=== PATIENT | female | born 1980 | race Caucasian/White ===

== ENCOUNTER → 2018-03-24 | Outpatient (CLI) | payer BC, OTHER ==
--- NOTE | 2018-03-25 11:57 | Diagnostic Imaging Report ---
EXAM: OB ULTRASOUND COMPLETE DATE: March 24, 2018. COMPARISON: None. INDICATION: 37-year-old female, supervision of otherwise normal . FINDINGS: Multiple grayscale sonographic images were obtained of the gravid uterus. Overview: Within the uterus there is a single living gestation in breech position. There is positive movement and heart motion. heart rate was identified at 135 beats per minute. The amnionic fluid volume is subjectively normal. The placenta is posterior and without previa. The cervical length is 4.0 cm. growth parameters are summarized in detail on the accompanying separate chart. The approximate mean gestational age by today's ultrasound measurements is 21 weeks 0 days +/- 1 week variability. Estimated weight based on today's measurements is 411 g. anatomic survey: There is no ventriculomegaly (the lateral ventricle measures <7.5 mm) the cerebellum, cavum septum pellucidum, falx, and cisterna magna are identified. There are very limited images of the spine. There is visualization of the stomach, kidneys and urinary bladder. There is no diagnostic four-chamber view of the heart. There is a three-vessel cord with an unremarkable insertion into the abdominal wall. 4 extremities are seen. The upper lip is not well seen. IMPRESSION: 1. Single living intrauterine with approximate mean gestational age of 21 weeks 0 days +/- 1 week. 2. Significantly limited survey without demonstrated abnormality. Biometrical measurements are as follows: Biparietal 4.78 cm, age 20 weeks 4 days. Head circumference 17.96 cm, age 20 weeks 3 days. Abdominal circumference 16.69 cm, age 21 weeks 5 days. Femur length 3.49 cm, age 21 weeks 1 days. Sonographic estimate age: 21 weeks 0 days. Sonographic estimated date of delivery: 08/04/18. Estimated Weight: 411 gm (+/- 60 gm). LMP percentile: 98%. heart rate: 135 beats per minute. number: 1 of 1. Dictated by: Dictated on workstation # [id number]
== END ==
LOC: RAD 15:28
PROVIDERS: ATTEND Obstetrics & Gynecology
DX: O09.522 Supervision of elderly multigravida, second trimester (principal); Z3A.21 21 weeks gestation of pregnancy
CPT/HCPCS: 76805

== ENCOUNTER → 2018-04-24 | Outpatient (CLI) | payer BC ==
--- NOTE | 2018-04-24 17:43 | Diagnostic Imaging Report ---
INDICATION: patient, incomplete survey on previous study. TECHNIQUE: Multiple real-time grayscale images were obtained over the gravid uterus. COMPARISON: 03/24/2018. FINDINGS: Single live intrauterine fetus is seen with a heart rate of 163 beats per minute. The placenta is posterior and grade 1 with no evidence of previa. Fetus is in transverse presentation. Since the patient had a recent full survey, only limited views were obtained of the areas which were not seen on the prior study. Normal appearing four-heart view and spine views were identified. Biometrical measurements are as follows: IMPRESSION: Limited survey was performed to evaluate the areas which were not seen on the previous study. Normal-appearing four-chamber heart view and spine were seen. heart rate is 163 beats per minute. There is no detectable abnormality on this limited study. Dictated on workstation # [id number]
== END ==
LOC: RAD 15:08
PROVIDERS: ATTEND Obstetrics & Gynecology
DX: Z36.89 Encounter for other specified antenatal screening (principal); Z3A.00 Weeks of gestation of pregnancy not specified
CPT/HCPCS: 76816

== ENCOUNTER 2018-07-07 10:35 | Outpatient (CLI) | payer BC ==
[~2018-07-07] VITALS: Ht 165.1 cm; Wt 99.3 kg
--- NOTE | 2018-07-07 10:30 | NUR ---
CONCEPCIÓN BERRY presented to unit via AMBULATORY from HOME, with c/o VAGINAL BLEEDING AT 35 WEEKS. CONCEPCIÓN BERRY weighed, gowned, voided, and to bed. EFHM and TOCO applied, VS taken. CONCEPCIÓN BERRY oriented to bed controls, call light, TV, heat, and A/C controls.
[2018-07-07 10:36] VITALS: BP 129/83
[2018-07-07 10:52] LABS: BILIRUBIN,URINE NEGATIVE (NEGATIVE); CLARITY,URINE CLEAR; COLOR,URINE YELLOW; GLUCOSE, URINE (UA) NEGATIVE (NEGATIVE); KETONES,URINE NEGATIVE (NEGATIVE); LEUKOCYTE ESTERASE ,URINE 2+ (NEGATIVE); NITRITE,URINE NEGATIVE (NEGATIVE); PH,URINE 7 (5-9); PROTEIN,URINE 1+ (NEGATIVE); UROBILINOGEN,URINE NORMAL (NORMAL)
[2018-07-07 11:01] LABS: BACTERIA,URINE FEW /HPF; RBC,URINE RARE /HPF
[2018-07-07] MEDS ORDERED: OMEG-82 PO (11:08)
[2018-07-07] MEDS ORDERED: PREN-37 PO (11:08)
--- NOTE | 2018-07-07 11:16 | NUR ---
DR. EGAN CALLED AND NOTIFIED OF PT'S ARRIVAL, C/O AND STATUS. DR TO COME TO UNIT AND SEE PT, REQUESTING TO DO A SPECULUM EXAM.
--- NOTE | 2018-07-07 11:59 | NUR ---
REFER TO LABOR FLOW SHEET.
--- NOTE | 2018-07-07 12:15 | NUR ---
DISCHARGE PAPERS PROVIDED AND REVIEWED WITH PT, PT VERBALIZES UNDERSTANDING AND DENIES ANY QUESTIONS AT THIS TIME. PAPER SIGNED.
--- NOTE | 2018-07-07 12:18 | NUR ---
PT DISCHARGED FROM [facility] TO [facility] VIA AMBULATORY IN STABLE CONDITION.
--- NOTE | 2018-07-08 13:31 | Physician Query-Final Dx ---
JESSI HOLCOMB 07/08/18 1331: Clinic Account Progress/Dx Physician Query: Please give diagnosis Date of Service Jul 07, 2018 at 10:35 YAMILET EGAN DO 07/30/18 1347: Clinic Account Progress/Dx DIAGNOSIS: Diagnosis 35 wee gestation third trimester bleeding JESSI HOLCOMB Jul 08, 2018 13:31 YAMILET EGAN DO Jul 30, 2018 13:47
== END 2018-07-07 12:18 | disposition home or self-care (01) ==
LOC: WSo 10:35 → LDRP 10:35 → WSo 12:18
PROVIDERS: ATTEND Obstetrics & Gynecology
DX: O46.93 Antepartum hemorrhage, unspecified, third trimester (principal); Z3A.35 35 weeks gestation of pregnancy
CPT/HCPCS: 81000; 87088; 99213

== ENCOUNTER → 2018-07-21 | Outpatient (CLI) | payer BC ==
[~2018-07-21] MED LIST: OMEG-82 PO; PREN-37 PO
--- NOTE | 2018-07-21 11:20 | Diagnostic Imaging Report ---
INDICATION: Size and dates. TECHNIQUE: Multiple real-time grayscale images were obtained over the gravid uterus. COMPARISON: 04/24/2018. FINDINGS: There is a single living intrauterine in cephalic presentation. Amniotic fluid index is 13.03. Heart rates is 152 beats per minute and regular. Estimated weight is 3209 g. The biometry correlates with a gestational age of 37 weeks 1 day. The biophysical profile score is 8 out of 8. IMPRESSION: Single living intrauterine with sonographically estimated gestational age of 37 weeks 1 day and estimated date of confinement 08/10/2018. Normal biophysical profile score of 8 out of 8. Biometrical measurements are as follows: Biparietal 9.08 cm, age 36 weeks 6 days. Head circumference 32.36 cm, age 36 weeks 5 days. Abdominal circumference 34.34 cm, age 38 weeks 2 days. Femur length 7.08 cm, age 36 weeks 3 days. Sonographic estimate age: 37 weeks 1 days. Sonographic estimated date of delivery: 08/10/2018. Estimated Weight: 3209 gm (+/- 469 gm). LMP percentile: 71%. heart rate: 152 beats per minute. number: 1 of 1. Dictated by: Dictated on workstation # [id number]
== END ==
LOC: RAD 09:48
PROVIDERS: ATTEND Obstetrics & Gynecology
DX: O09.523 Supervision of elderly multigravida, third trimester (principal); Z3A.36 36 weeks gestation of pregnancy
CPT/HCPCS: 76805; 76819

== ENCOUNTER 2018-08-13 09:05 | Inpatient (IN) | payer BC ==
[2018-08-13] VITALS (63 sets, daily range): BP systolic 94–146; BP diastolic 51–90
[~2018-08-13] VITALS: Ht 165.1 cm; Wt 101.3 kg
--- NOTE | 2018-08-13 08:35 | NUR ---
CONCEPCIÓN BERRY presented to unit via AMBULAITON from HOME, accompanied by , with c/o POSSIBLE LABOR. CONCEPCIÓN BERRY weighed, gowned, voided, and to bed. EFHM and TOCO applied, VS taken. CONCEPCIÓN BERRY oriented to bed controls, call light, TV, heat, and A/C controls.
--- NOTE | 2018-08-13 09:02 | NUR ---
DR EGAN NOTIFIED OF PATIENT C/O, STATUS, AND RECENT CERVICAL EXAM. NEW ORDERS RECEIVED.
[2018-08-13] MEDS ORDERED: D5 LR IV SOLUTION 1,000 ML IV ONE (09:29)
[2018-08-13] MEDS ORDERED: LACTATED RINGERS 1,000 ML IV ONE (09:29)
[2018-08-13] MEDS ORDERED: MINERAL OIL CONCENTRATE 99.9% 15 ML UDC TOP PRN (09:30)
[2018-08-13 09:39] LABS: BASOPHILS % (AUTO) 0 % (0-10); EOSINOPHILS # (AUTO) 0.1 10^3/uL (0.0-0.3); EOSINOPHILS % (AUTO) 1 % (0-10); HEMATOCRIT 34 % (35-52); HEMOGLOBIN 11.4 G/DL (11.5-16.0); LYMPHOCYTES # (AUTO) 1.6 X 10^3 (1.0-4.0); LYMPHOCYTES % (AUTO) 13 % (12-44); MEAN CORPUSCULAR HEMOGLOBIN 29 PG (25-34); MEAN CORPUSCULAR HGB CONC 33 G/DL (32-36); MEAN CORPUSCULAR VOLUME 88 FL (80-99); MEAN PLATELET VOLUME 9.7 FL (7.4-10.4); MONOCYTES # (AUTO) 0.6 X 10^3 (0.0-1.0); MONOCYTES % (AUTO) 5 % (0-12); NEUTROPHILS # (AUTO) 10.1 X 10^3 (1.8-7.8); NEUTROPHILS % (AUTO) 82 % (42-75); PLATELET COUNT 255 10^3/uL (130-400); RED CELL DISTRIBUTION WIDTH 14.7 % (10.0-14.5); WHITE BLOOD COUNT 12.4 10^3/uL (4.3-11.0)
[2018-08-13] MEDS: D5 LR IV SOLUTION 1,000 ML IV SCH ×2 (09:40→17:40)
[2018-08-13 09:46] LABS: BILIRUBIN,URINE NEGATIVE (NEGATIVE); CLARITY,URINE CLEAR; COLOR,URINE YELLOW; GLUCOSE, URINE (UA) NEGATIVE (NEGATIVE); KETONES,URINE NEGATIVE (NEGATIVE); LEUKOCYTE ESTERASE ,URINE NEGATIVE (NEGATIVE); NITRITE,URINE NEGATIVE (NEGATIVE); PH,URINE 7 (5-9); PROTEIN,URINE NEGATIVE (NEGATIVE); UROBILINOGEN,URINE NORMAL (NORMAL)
[2018-08-13 09:53] LABS: BACTERIA,URINE NEGATIVE /HPF; RBC,URINE RARE /HPF; WBC,URINE RARE /HPF
[2018-08-13] MEDS ORDERED: SUFENTA 0.6MCG/ML BUPIVA 0.125 100 ML ONE (09:53)
[2018-08-13] MEDS ORDERED: LACTATED RINGERS 1,000 ML IV SCH (10:16)
[2018-08-13] MEDS ORDERED: EPIDURAL (SUFENTA 0.6MCG/ML BUPIVA 0.125%) 100 ML BAG EPI SCH (10:30)
[2018-08-13] MEDS ORDERED: diphenhydrAMINE 50 MG/ML INJ (BENADRYL) IV PRN (10:30)
[2018-08-13] MEDS ORDERED: METOCLOPRAMIDE INJ 10 MG/2 ML (REGLAN) IV PRN (10:30)
[2018-08-13] MEDS ORDERED: ONDANSETRON 4 MG/2 ML (SDV) Z0FRAN IV PRN (10:30)
[2018-08-13] MEDS ORDERED: NALOXONE 0.4 MG/ML 1 ML (NARCAN) VIAL IV PRN ×2 (10:30)
--- NOTE | 2018-08-13 11:10 | NUR ---
NURSERY RN NOTIFIED OF MECONIUM WITH AROM
--- OUTSIDE RECORDS SUMMARY | 2018-08-13 11:18 | XMS REPORT ---
Author Author EDWINA BINGHAM Organization [facility] Address [address] [place] [address] Care Team Providers Care Forest Nursery Worker Name Role Phone EDWINA BINGHAM Unavailable PROBLEMS Unknown Problems ALLERGIES No Information ENCOUNTERS Encounter Location Date Diagnosis [place] [id number] [address] Mar, Exposure to blood-borne pathogen Z77.21 [place] [id number] [address] Mar, Exposure to blood-borne pathogen Z77.21 [place] [id number] [place] [address] Feb, Exposure to blood-borne pathogen Z77.21 [place] [address] [place] [address] May, Visit for TB skin test Z11.1 [place] [id number], [place] [address] May, Encounter for immunization Z23 and Visit for TB skin test Z11.1 IMMUNIZATIONS No Known Immunizations SOCIAL HISTORY Never Assessed REASON FOR VISIT Lab (walk-in) PLAN OF CARE Activity Details Pending Test HEPATITIS PROFILE Pending Test HIV ANTIGEN/ANTIBODY VITAL SIGNS MEDICATIONS Unknown Medications RESULTS No Results PROCEDURES Procedure Date Ordered Result Body Site HIV-1 AG W/HIV-1 & HIV-2 AB Mar 24, 2018 ACUTE HEPATITIS PANEL Mar 24, 2018 VENIPUNCT, ROUTINE* Mar 24, 2018 INSTRUCTIONS MEDICATIONS ADMINISTERED No Known Medications
--- OUTSIDE RECORDS SUMMARY | 2018-08-13 11:18 | XMS REPORT ---
Author Author KRIS GOMEZ Organization [facility] Address [address] [place] [address] Care Team Providers Care Human Resources Consultant Name Role Phone KRIS GOMEZ Unavailable PROBLEMS Unknown Problems ALLERGIES No Information ENCOUNTERS Encounter Location Date Diagnosis [facility] [address] [facility] [id number] [address] May, Visit for TB skin test Z11.1 [facility] [address] [facility] [id number] [address] May, Encounter for immunization Z23 and Visit for TB skin test Z11.1 IMMUNIZATIONS No Known Immunizations SOCIAL HISTORY Never Assessed REASON FOR VISIT TB skin test -- kathleen bloom PLAN OF CARE Activity Details Follow Up 48-72 hours. Reason: VITAL SIGNS MEDICATIONS Unknown Medications RESULTS No Results PROCEDURES Procedure Date Ordered Result Body Site TB INTRADERMAL 2017-05-30 Negative TB INTRADERMAL TEST May 30, 2017 TB INTRADERMAL TEST May 30, 2017 INSTRUCTIONS MEDICATIONS ADMINISTERED No Known Medications
--- OUTSIDE RECORDS SUMMARY | 2018-08-13 11:18 | XMS REPORT ---
Author Author EDWINA BINGHAM Organization [facility] Address [address] [place] [address] Care Team Providers Care E Business Project Manager Name Role Phone EDWINA BINGHAM Unavailable PROBLEMS Unknown Problems ALLERGIES No Information ENCOUNTERS Encounter Location Date Diagnosis [place] [address] [place] [address] Mar, Exposure to blood-borne pathogen Z77.21 [place] [address], [place] [address] Mar, Exposure to blood-borne pathogen Z77.21 [place] [address] [place] [address] Feb, Exposure to blood-borne pathogen Z77.21 [place] [address] [place] [address] May, Visit for TB skin test Z11.1 [place] [address], [place] [address] May, Encounter for immunization Z23 and Visit for TB skin test Z11.1 IMMUNIZATIONS No Known Immunizations SOCIAL HISTORY Never Assessed REASON FOR VISIT PLAN OF CARE VITAL SIGNS MEDICATIONS Unknown Medications RESULTS No Results PROCEDURES No Known procedures INSTRUCTIONS MEDICATIONS ADMINISTERED No Known Medications
--- OUTSIDE RECORDS SUMMARY | 2018-08-13 11:18 | XMS REPORT ---
Author Author GARRET DUKES Organization [facility] Address [address] [place] [address] Phone Unavailable Care Team Providers Care Apprise Counselor Name Role Phone GARRET DUEKS Unavailable Unavailable PROBLEMS Unknown Problems ALLERGIES No Information ENCOUNTERS Encounter Location Date Diagnosis [facility] [id number], [place] [address] Feb, Exposure to blood-borne pathogen Z77.21 [facility] [id number], [place] [address] May, Visit for TB skin test Z11.1 [facility] [id number], [place] [address] May, Encounter for immunization Z23 and Visit for TB skin test Z11.1 IMMUNIZATIONS No Known Immunizations SOCIAL HISTORY Never Assessed REASON FOR VISIT Lab (walk-in) PLAN OF CARE Activity Details Follow Up prn Reason: Pending Test HIV ANTIGEN/ANTIBODY Pending Test HEP B SURFACE ANTIBODY (QUANT) Pending Test HEP B SURFACE ANTIGEN Pending Test HEP C ANTIBODY W/ REFLEX HCV VITAL SIGNS MEDICATIONS Unknown Medications RESULTS No Results PROCEDURES Procedure Date Ordered Result Body Site HIV-1 AG W/HIV-1 & HIV-2 AB Feb 24, 2018 HEPATITIS C AB TEST Feb 24, 2018 IMMUNOASSAY,INFECTIOUS AGENT Feb 24, 2018 VENIPUNCT, ROUTINE* Feb 24, 2018 HEPATITIS B SURFACE AG, EIA Feb 24, 2018 INSTRUCTIONS MEDICATIONS ADMINISTERED No Known Medications
--- NOTE | 2018-08-13 12:41 | History & Physical-OB ---
OB - Chief Complaint & HPI Date/Time Date of Admission: Date of Admission: Aug 13, 2018 at 09:48 Date seen by a Provider: Aug 13, 2018 Time Seen by a Provider: 10:30 Chief Complaint/History OB-Reason for Admission/Chief: Previous section. Desires TOLAC Hx : 2 Hx Para: 1 Expected Date of Delivery: Aug 12, 2018 Gestational Age in Weeks: 40 Gestational Age in Days: 1 Allergies and Home Medications Allergies Coded Allergies: No Known Drug Allergies (Unverified , 04/16/10) Home Medications [place]-3S/Dha/Epa/Fish Oil/D3 1 Each Capsule, 1 EACH PO DAILY, (Reported) Vit/Iron Fumarate/FA 1 Each Tablet, 1 EACH PO DAILY, (Reported) Patient Home Medication List Home Medication List Reviewed: Yes OB - History Hx of Present Ultrasounds: Normal mid trimester US Obstetrical Complications: None Medical Complications: None Information Induced Hypertension: No Maternal Gestational Diabetes: No Hemorrhage: No Obstetrical History Hx : 2 Hx Para: 1 Delivery History Hx Distress: Yes Hx Section: Yes Hx Vaginal Delivery Post C-Sec: No Adverse Rxn to Tranfusion: No Patient Past Medical History NC Social History/Family History Alcohol Use: Denies Use Recreational Drug Use: No Immunizations Hepatitis A: Yes Hepatitis B: Yes Date of Influenza Vaccine: Feb 02, 2018 OB - Admission Exam Physical Exam Vitals: Vital Signs 08/13/18 08/13/18 09:40 11:01 Temp 97.5 Pulse 62 Resp 18 B/P (MAP) 122/77 (92) Pulse Ox 100 O2 Delivery Room Air Heart: Rhythm Normal Lungs: Clear Abdomen: Gravid Cervical Dilatation: 5cm Effacement: 100% Station: Ballotable Membranes: Intact Heart Rate: 140's Accelerations: Accelerations Present Decelerations: No Decelerations Short Term Variability: Present Alf Variability: Average (6-25) Contractions on Admission: 6-10 Minutes Apart Labs Laboratory Tests Test 08/13/18 09:00 08/13/18 09:20 Range/Units Urine Color YELLOW Urine Clarity CLEAR Urine pH 7 5-9 Urine Specific [place] 1.005 L 1.016-1.022 Urine Protein NEGATIVE NEGATIVE Urine Glucose (UA) NEGATIVE NEGATIVE Urine Ketones NEGATIVE NEGATIVE Urine Nitrite NEGATIVE NEGATIVE Urine Bilirubin NEGATIVE NEGATIVE Urine Urobilinogen NORMAL NORMAL MG/DL Urine Leukocyte Esterase NEGATIVE NEGATIVE Urine RBC (Auto) 2+ H NEGATIVE Urine RBC RARE /HPF Urine WBC RARE /HPF Urine Squamous Epithelial Cells 2-5 /HPF Urine Crystals NONE /LPF Urine Bacteria NEGATIVE /HPF Urine Casts NONE /LPF Urine Mucus NEGATIVE /LPF Urine Culture Indicated CULTURE PENDING White Blood Count 12.4 H 4.3-11.0 10^3/uL Red Blood Count 3.88 L 4.35-5.85 10^6/uL Hemoglobin 11.4 L 11.5-16.0 G/DL Hematocrit 34 L 35-52 % Mean Corpuscular Volume 88 80-99 FL Mean Corpuscular Hemoglobin 29 25-34 PG Mean Corpuscular Hemoglobin Concent 33 32-36 G/DL Red Cell Distribution Width 14.7 H 10.0-14.5 % Platelet Count 255 130-400 10^3/uL Mean Platelet Volume 9.7 7.4-10.4 FL Neutrophils (%) (Auto) 82 H 42-75 % Lymphocytes (%) (Auto) 13 12-44 % Monocytes (%) (Auto) 5 0-12 % Eosinophils (%) (Auto) 1 0-10 % Basophils (%) (Auto) 0 0-10 % Neutrophils # (Auto) 10.1 H 1.8-7.8 X 10^3 Lymphocytes # (Auto) 1.6 1.0-4.0 X 10^3 Monocytes # (Auto) 0.6 0.0-1.0 X 10^3 Eosinophils # (Auto) 0.1 0.0-0.3 10^3/uL Basophils # (Auto) 0.0 0.0-0.1 10^3/uL OB - Assessment/Plan/Diagnosis Assessment Assessment: active labor, other (TOLAC) Admission Dx 1. Patient to be admitted for TOLAC. I am in house. Anesthesia has placed epidural. 2. Anticipate . TOLAC consent on the chart. Admission Status: Inpatient Order (span 2 midnights) Reason for Inpatient Admission: tolac Plan Plan: Expectant Management YAMILET EGAN DO Aug 13, 2018 12:41
--- NOTE | 2018-08-13 15:15 | NUR ---
DR EGAN TO OB FLOOR, REVIEWING FHR/CONTRACTION PATTERN. REVIEWED WITH MOST RECENT SVE RESULTS.
[2018-08-13] MEDS ORDERED: PROMETHAZINE INJ 25 MG/ML (PHENERGAN) AMP IVP ONE (19:15)
[2018-08-13] MEDS ORDERED: PROMETHAZINE INJ 25 MG/ML (PHENERGAN) AMP ONE (19:16)
[2018-08-13] MEDS: CATHETER FLUSH 10 ML SYR IV SCH (19:46)
[2018-08-13] MEDS ORDERED: OXYTOCIN/NORMAL SALINE 500 ML IV ONE (20:25)
[2018-08-13] MEDS ORDERED: OXYTOCIN/NORMAL SALINE 500 ML IV SCH (20:28)
--- NOTE | 2018-08-13 22:15 | Progress Note (SOAP) ---
Subjective Date Seen by a Provider: Aug 13, 2018 Time Seen by a Provider: 10:45 Subjective/Events-last exam Epidural has been placed. Cooney just placed she is not feeling contractions. Contractions every 5-6 minutes FWB reassuring 40 1/7 weeks SVE 6-7/ 100/ ball AROM, thin meconium. Anticipate Proceed with spontaneous labor and management. Objective Exam Vital Signs Date Time Temp Pulse Resp B/P (MAP) Pulse Ox O2 Delivery O2 Flow Rate FiO2 08/13/18 20:45 71 18 114/65 (81) Room Air 08/13/18 20:40 68 121/57 (78) 08/13/18 20:30 71 120/56 (77) Room Air 08/13/18 20:15 80 116/61 (79) Room Air 08/13/18 20:00 69 120/68 (85) Room Air 08/13/18 19:45 68 111/58 (75) Room Air 08/13/18 19:30 Room Air 08/13/18 19:15 98.8 67 18 117/65 (82) Room Air 08/13/18 18:30 71 18 119/57 (77) Room Air 08/13/18 18:15 74 18 121/59 (79) Room Air 08/13/18 18:00 79 18 142/90 (107) Room Air 08/13/18 17:45 72 18 137/63 (87) Room Air 08/13/18 17:30 68 18 126/59 (81) Room Air 08/13/18 17:15 60 18 127/69 (88) Room Air 08/13/18 17:00 69 18 138/75 (96) Room Air 08/13/18 16:45 60 18 135/76 (95) Room Air 08/13/18 16:30 70 18 134/75 (94) Room Air 08/13/18 16:15 68 18 136/57 (83) Room Air 08/13/18 16:00 99.0 78 20 113/76 (88) Room Air 08/13/18 15:45 68 20 94/51 (65) Room Air 08/13/18 15:30 71 20 96/52 (67) Room Air 08/13/18 15:15 73 20 112/53 (72) Room Air 08/13/18 14:45 98.8 65 20 112/54 (73) Room Air 08/13/18 14:00 67 20 125/63 (83) Room Air 08/13/18 13:45 67 20 108/55 (72) Room Air 08/13/18 13:30 58 20 136/58 (84) 100 Room Air 08/13/18 13:15 62 20 113/55 (74) 100 Room Air 08/13/18 13:00 64 18 126/56 (79) 99 Room Air 08/13/18 12:45 61 18 119/57 (77) 100 Room Air 08/13/18 12:30 61 18 124/66 (85) 98 Room Air 08/13/18 12:15 63 18 109/62 (78) 98 Room Air 08/13/18 12:00 62 16 121/65 (83) 99 Room Air 08/13/18 11:45 64 16 119/65 (83) 100 Room Air 08/13/18 11:25 71 18 115/72 (86) 100 Room Air 08/13/18 11:10 71 18 113/60 (77) 100 Room Air 08/13/18 11:01 62 18 122/77 (92) 100 Room Air 08/13/18 10:58 59 16 123/60 (81) 100 Room Air 08/13/18 10:50 63 16 110/63 (79) 97 Room Air 08/13/18 10:46 64 16 110/63 (79) 100 Room Air 08/13/18 10:42 65 16 112/64 (80) 100 Room Air 08/13/18 10:38 66 16 112/65 (81) 100 Room Air 08/13/18 10:34 64 16 116/69 (85) 99 Room Air 08/13/18 10:30 62 16 115/66 (82) 99 Room Air 08/13/18 10:26 74 16 112/61 (78) 99 Room Air 08/13/18 10:22 74 16 121/69 (86) 99 Room Air 08/13/18 10:18 74 18 121/68 (85) 99 Room Air 08/13/18 10:14 71 18 131/69 (89) 99 Room Air 08/13/18 10:10 71 20 129/60 (83) 99 Room Air 08/13/18 10:06 73 20 141/81 (101) Room Air 08/13/18 10:02 70 20 134/71 (92) Room Air 08/13/18 09:40 97.5 69 20 142/76 (98) Room Air 08/13/18 08:55 68 20 146/66 (92) Room Air Capillary Refill : General Appearance: No Apparent Distress Results Lab Laboratory Tests 08/13/18 09:00: Urine Color YELLOW, Urine Clarity CLEAR, Urine pH 7, Urine Specific [place] 1.005L, Urine Protein NEGATIVE, Urine Glucose (UA) NEGATIVE, Urine Ketones NEGATIVE, Urine Nitrite NEGATIVE, Urine Bilirubin NEGATIVE, Urine Urobilinogen NORMAL, Urine Leukocyte Esterase NEGATIVE, Urine RBC (Auto) 2+H, Urine RBC RARE , Urine WBC RARE, Urine Squamous Epithelial Cells 2-5, Urine Crystals NONE, Urine Bacteria NEGATIVE, Urine Casts NONE, Urine Mucus NEGATIVE, Urine Culture Indicated CULTURE PENDING 08/13/18 09:20: White Blood Count 12.4H, Red Blood Count 3.88L, Hemoglobin 11.4L, Hematocrit 34L , Mean Corpuscular Volume 88, Mean Corpuscular Hemoglobin 29, Mean Corpuscular Hemoglobin Concent 33, Red Cell Distribution Width 14.7H, Platelet Count 255, Mean Platelet Volume 9.7, Neutrophils (%) (Auto) 82H, Lymphocytes (%) (Auto) 13 , Monocytes (%) (Auto) 5, Eosinophils (%) (Auto) 1, Basophils (%) (Auto) 0, Neutrophils # (Auto) 10.1H, Lymphocytes # (Auto) 1.6, Monocytes # (Auto) 0.6, Eosinophils # (Auto) 0.1, Basophils # (Auto) 0.0 Assessment/Plan Assessment/Plan Assess & Plan/Chief Complaint 1/ Active labor 2. TOLAC Clinical Quality Measures DVT/VTE Risk/Contraindication: Risk Factor Score Per Nursin RFS Level Per Nursing on Admit: 1=Low/No VTE PPX YAMILET EGAN DO Aug 13, 2018 22:15
--- NOTE | 2018-08-13 22:18 | Physician Progress Note ---
Progress Note Assessment/Plan Date Seen by Provider: Aug 13, 2018 Time Seen by Provider: 22:15 Events since last exam Patient initially declined Pitocin augmentation despite no progress into labor. She reached 8 cm dilation and multiple positions were trialed. She had promethazine IV x 1 as cervix was beginning to swell. After another 2 hours she did agree to Pitocin augmentation. well being has been reassuring, category I-II with early and occasional late decelerations. there was good recovery to baseline however. SVE is 9 and cervix now less swollen.. Discussed repeat section with patient and her . Will continue to augment and check again in 1 1/2 hours Assessment/Plan 1/ Active labor 2. TOLAC Vitals Last set of Vitals Signs Vital Signs Date Time Temp Pulse Resp B/P (MAP) Pulse Ox O2 Delivery O2 Flow Rate FiO2 08/13/18 20:45 71 18 114/65 (81) Room Air 08/13/18 19:15 98.8 08/13/18 13:30 100 Labs Laboratory Tests 08/13/18 09:00: Urine Color YELLOW, Urine Clarity CLEAR, Urine pH 7, Urine Specific [place] 1.005L, Urine Protein NEGATIVE, Urine Glucose (UA) NEGATIVE, Urine Ketones NEGATIVE, Urine Nitrite NEGATIVE, Urine Bilirubin NEGATIVE, Urine Urobilinogen NORMAL, Urine Leukocyte Esterase NEGATIVE, Urine RBC (Auto) 2+H, Urine RBC RARE , Urine WBC RARE, Urine Squamous Epithelial Cells 2-5, Urine Crystals NONE, Urine Bacteria NEGATIVE, Urine Casts NONE, Urine Mucus NEGATIVE, Urine Culture Indicated CULTURE PENDING 08/13/18 09:20: White Blood Count 12.4H, Red Blood Count 3.88L, Hemoglobin 11.4L, Hematocrit 34L , Mean Corpuscular Volume 88, Mean Corpuscular Hemoglobin 29, Mean Corpuscular Hemoglobin Concent 33, Red Cell Distribution Width 14.7H, Platelet Count 255, Mean Platelet Volume 9.7, Neutrophils (%) (Auto) 82H, Lymphocytes (%) (Auto) 13 , Monocytes (%) (Auto) 5, Eosinophils (%) (Auto) 1, Basophils (%) (Auto) 0, Neutrophils # (Auto) 10.1H, Lymphocytes # (Auto) 1.6, Monocytes # (Auto) 0.6, Eosinophils # (Auto) 0.1, Basophils # (Auto) 0.0 Clinical Quality Measures DVT/VTE Risk/Contraindication: Risk Factor Score Per Nursin RFS Level Per Nursing on Admit: 1=Low/No VTE PPX YAMILET EGAN DO Aug 13, 2018 22:18
[2018-08-13] MEDS ORDERED: ACETAMINOPHEN 500 MG TAB (TYLENOL) ONE (23:58)
[2018-08-14] VITALS (33 sets, daily range): BP systolic 88–143; BP diastolic 42–66
[2018-08-14] MEDS ORDERED: AMPICILLIN/SULBACTAM 3 GM VIAL (UNASYN) ONE (00:12)
[2018-08-14] MEDS ORDERED: NS (IVPB) 100 ML ONE (00:13)
[2018-08-14] MEDS ORDERED: AMPICILLIN/SULBACTAM INJECTION 3 GM in NS (IVPB) 100 ML IV ONE (00:15)
[2018-08-14] MEDS ORDERED: ACETAMINOPHEN 500 MG TAB (TYLENOL) PO ONE (00:15)
[2018-08-14] MEDS ORDERED: LIDOCAINE/EPI 2% 1:200,00 (XYLOCAINE) 10 ML VIAL ONE (00:25)
[2018-08-14] MEDS ORDERED: OXYTOCIN/NORMAL SALINE 500 ML IV SCH (02:44)
[2018-08-14] MEDS ORDERED: BENZOCAINE/MENTHOL (DERMOPLAST) 56 ML CAN TP PRN (02:45)
[2018-08-14] MEDS ORDERED: DIBUCAINE (NUPERCAINAL) 1% OINT 30 GM TOP PRN (02:45)
[2018-08-14] MEDS ORDERED: MEASLES,MUMPS,RUBELLA 1 EA INJ SQ ONE (02:45)
[2018-08-14] MEDS ORDERED: TETANUS,DIPTH,PERTUSS P/F (BOOSTRIX) 0.5 ML VIAL IM ONE (02:45)
[2018-08-14] MEDS ORDERED: WITCH HAZEL(TUCKS) 40 EA JAR TOP PRN (02:45)
--- NOTE | 2018-08-14 02:48 | OB Labor & Delivery Record ---
Vag Delivery Note Vag Delivery Note Date of Delivery: 08/14/18 Preoperative Diagnosis: Maria Luisa Menezes is a 38 /Para 2 / 1, Gestational Age 40 2/7 weeks, previous section, TOLAC AMA, chorioamnionitis Postoperative Diagnosis: Surgeon: YAMILET EGAN Spinning Frame Changer: Jasmyne Bartlett, MS III Anesthesia: epidural Delivery Type: Findings: Viable male infant, apgars pending, weight 3615 g Lacerations: 2nd degree with partial capsulotomy, supraurethral laceration Intact placenta with 3 vessel cord. No nuchal cord, body cord or shoulder dystocia. compound presentation (right hand over right ear) Estimated Blood Loss: 250 ml Complications: None Condition: Stable Description of Procedure: The patient is a 38 year old female who presented in active labor. She was admitted and informed consent was obtained. Her labor course was remarkable for epidural. She progressed to complete dilatation and began to push. She was then set up for delivery. The 's head was delivered atraumatically in the [] position. The shoulders and remainder of the 's body were then delivered without difficulty. Upon delivery, the head was held below the level of the perineum and the mouth and nares were bulb suctioned. The cord was doubly clamped and cut and the was handed off to the pediatric staff. An intact placenta with 3-vessel cord delivered via Sherita and there was found to be minimal bleeding.~ Vigorous fundal massage was performed and the fundus was found to be firm. IV oxytocin was given. Examination of the vagina and perineum revealed a snd degree laceration with partial capsulotomy repaired in the usual fashion with 3-0 vicryl suture. Following the repair, sponge, instrument and needle counts were correct. Mom and baby were both in stable condition in the labor suite. Vitals - Labs Vital Signs - I&O Vital Signs Date Time Temp Pulse Resp B/P (MAP) Pulse Ox O2 Delivery O2 Flow Rate FiO2 08/13/18 22:45 99.9 64 18 118/57 (77) Room Air 08/13/18 22:30 67 18 122/67 (85) Room Air 08/13/18 22:15 66 18 131/70 (90) Room Air 08/13/18 22:00 68 18 135/72 (93) Room Air 08/13/18 21:45 75 18 108/55 (72) Room Air 08/13/18 21:30 74 18 111/60 (77) Room Air 08/13/18 21:15 99.2 75 18 113/59 (77) Room Air 08/13/18 21:00 74 18 114/56 (75) Room Air 08/13/18 20:45 71 18 114/65 (81) Room Air 08/13/18 20:40 68 121/57 (78) 08/13/18 20:30 71 120/56 (77) Room Air 08/13/18 20:15 80 116/61 (79) Room Air 08/13/18 20:00 69 120/68 (85) Room Air 08/13/18 19:45 68 111/58 (75) Room Air 08/13/18 19:30 Room Air 08/13/18 19:15 98.8 67 18 117/65 (82) Room Air 08/13/18 18:30 71 18 119/57 (77) Room Air 08/13/18 18:15 74 18 121/59 (79) Room Air 08/13/18 18:00 79 18 142/90 (107) Room Air 08/13/18 17:45 72 18 137/63 (87) Room Air 08/13/18 17:30 68 18 126/59 (81) Room Air 08/13/18 17:15 60 18 127/69 (88) Room Air 08/13/18 17:00 69 18 138/75 (96) Room Air 08/13/18 16:45 60 18 135/76 (95) Room Air 08/13/18 16:30 70 18 134/75 (94) Room Air 08/13/18 16:15 68 18 136/57 (83) Room Air 08/13/18 16:00 99.0 78 20 113/76 (88) Room Air 08/13/18 15:45 68 20 94/51 (65) Room Air 08/13/18 15:30 71 20 96/52 (67) Room Air 08/13/18 15:15 73 20 112/53 (72) Room Air 08/13/18 14:45 98.8 65 20 112/54 (73) Room Air 08/13/18 14:00 67 20 125/63 (83) Room Air 4/11/19 13:45 67 20 108/55 (72) Room Air 08/13/18 13:30 58 20 136/58 (84) 100 Room Air 08/13/18 13:15 62 20 113/55 (74) 100 Room Air 08/13/18 13:00 64 18 126/56 (79) 99 Room Air 08/13/18 12:45 61 18 119/57 (77) 100 Room Air 08/13/18 12:30 61 18 124/66 (85) 98 Room Air 08/13/18 12:15 63 18 109/62 (78) 98 Room Air 08/13/18 12:00 62 16 121/65 (83) 99 Room Air 08/13/18 11:45 64 16 119/65 (83) 100 Room Air 08/13/18 11:25 71 18 115/72 (86) 100 Room Air 08/13/18 11:10 71 18 113/60 (77) 100 Room Air 08/13/18 11:01 62 18 122/77 (92) 100 Room Air 08/13/18 10:58 59 16 123/60 (81) 100 Room Air 08/13/18 10:50 63 16 110/63 (79) 97 Room Air 08/13/18 10:46 64 16 110/63 (79) 100 Room Air 08/13/18 10:42 65 16 112/64 (80) 100 Room Air 08/13/18 10:38 66 16 112/65 (81) 100 Room Air 08/13/18 10:34 64 16 116/69 (85) 99 Room Air 08/13/18 10:30 62 16 115/66 (82) 99 Room Air 08/13/18 10:26 74 16 112/61 (78) 99 Room Air 08/13/18 10:22 74 16 121/69 (86) 99 Room Air 08/13/18 10:18 74 18 121/68 (85) 99 Room Air 08/13/18 10:14 71 18 131/69 (89) 99 Room Air 08/13/18 10:10 71 20 129/60 (83) 99 Room Air 08/13/18 10:06 73 20 141/81 (101) Room Air 08/13/18 10:02 70 20 134/71 (92) Room Air 08/13/18 09:40 97.5 69 20 142/76 (98) Room Air 08/13/18 08:55 68 20 146/66 (92) Room Air Labs Laboratory Tests 08/13/18 09:00: Urine Color YELLOW, Urine Clarity CLEAR, Urine pH 7, Urine Specific [place] 1.005L, Urine Protein NEGATIVE, Urine Glucose (UA) NEGATIVE, Urine Ketones NEGATIVE, Urine Nitrite NEGATIVE, Urine Bilirubin NEGATIVE, Urine Urobilinogen NORMAL, Urine Leukocyte Esterase NEGATIVE, Urine RBC (Auto) 2+H, Urine RBC RARE , Urine WBC RARE, Urine Squamous Epithelial Cells 2-5, Urine Crystals NONE, Urine Bacteria NEGATIVE, Urine Casts NONE, Urine Mucus NEGATIVE, Urine Culture Indicated CULTURE PENDING 08/13/18 09:20: White Blood Count 12.4H, Red Blood Count 3.88L, Hemoglobin 11.4L, Hematocrit 34L , Mean Corpuscular Volume 88, Mean Corpuscular Hemoglobin 29, Mean Corpuscular Hemoglobin Concent 33, Red Cell Distribution Width 14.7H, Platelet Count 255, Mean Platelet Volume 9.7, Neutrophils (%) (Auto) 82H, Lymphocytes (%) (Auto) 13 , Monocytes (%) (Auto) 5, Eosinophils (%) (Auto) 1, Basophils (%) (Auto) 0, Neutrophils # (Auto) 10.1H, Lymphocytes # (Auto) 1.6, Monocytes # (Auto) 0.6, Eosinophils # (Auto) 0.1, Basophils # (Auto) 0.0 YAMILET EGAN DO Aug 14, 2018 02:48
[2018-08-14] MEDS ORDERED: DIBUCAINE (NUPERCAINAL) 1% OINT 30 GM ONE (03:17)
[2018-08-14] MEDS ORDERED: WITCH HAZEL(TUCKS) 40 EA JAR ONE (03:17)
[2018-08-14] MEDS ORDERED: IBUPROFEN 600 MG (MOTRIN) TAB PO ONE (03:17)
[2018-08-14] MEDS: IBUPROFEN 600 MG (MOTRIN) TAB PO SCH ×3 (03:21→17:00)
--- NOTE | 2018-08-14 04:45 | NUR ---
Pt sitting up in bed, getting ready to feed infant. handed to patient. Patient denies needing anything at time. Requesting to stay in labor room for a while.
[2018-08-14] MEDS ORDERED: CATHETER FLUSH 10 ML SYR IV SCH (06:00)
[2018-08-14] MEDS: CATHETER FLUSH 10 ML SYR IV SCH (06:42)
--- NOTE | 2018-08-14 07:10 | NUR ---
Pt up to bathroom with standby assist from this RN. Pt steady on feet. [employer] demonstrated to patient. Privacy given. Belongings gathered. Pt ambulating to room at time with this RN and infant at side. No distress noted. Pt oriented to new room. No questions or concerns voiced at time
--- NOTE | 2018-08-14 08:14 | Anesthesia-Regional Post-Op ---
Regional Patient Condition Mental Status: Alert, Oriented x3 Circulation: Same as Pre-Op Headache: Absent Sensation: Full Recovery Motor Block: Absent Post Op Complications Complications None Follow Up Care/Instructions Patient Instructions None needed. Anesthesia/Patient Condition Patient is doing well, no complaints, stable vital signs, no apparent adverse anesthesia problems. No complications reported per nursing. PHILLIP BARCENAS CRNA Aug 14, 2018 08:14
[2018-08-14] MEDS: PRENATAL VITAMIN 1 EA TAB PO SCH (09:11)
[2018-08-14] MEDS: FERROUS SULF 325 MG (IRON) TAB PO SCH (09:12)
[2018-08-14] MEDS: ACETAMINOPHEN 500 MG TAB (TYLENOL) PO SCH ×2 (12:10→20:11)
--- NOTE | 2018-08-14 14:30 | NUR ---
SHOWER SET UP FOR PT AT THIS TIME, PT SHOWERS INDEPENDENTLY WITHOUT ISSUE.
[2018-08-15 05:46] LABS: BASOPHILS % (AUTO) 0 % (0-10); EOSINOPHILS # (AUTO) 0.2 10^3/uL (0.0-0.3); EOSINOPHILS % (AUTO) 2 % (0-10); HEMATOCRIT 29 % (35-52); HEMOGLOBIN 9.5 G/DL (11.5-16.0); LYMPHOCYTES % (AUTO) 19 % (12-44); MEAN CORPUSCULAR HEMOGLOBIN 30 PG (25-34); MEAN CORPUSCULAR HGB CONC 33 G/DL (32-36); MEAN CORPUSCULAR VOLUME 91 FL (80-99); MEAN PLATELET VOLUME 8.8 FL (7.4-10.4); MONOCYTES # (AUTO) 0.7 X 10^3 (0.0-1.0); MONOCYTES % (AUTO) 6 % (0-12); NEUTROPHILS # (AUTO) 7.7 X 10^3 (1.8-7.8); NEUTROPHILS % (AUTO) 73 % (42-75); PLATELET COUNT 193 10^3/uL (130-400); RED CELL DISTRIBUTION WIDTH 14.9 % (10.0-14.5); WHITE BLOOD COUNT 10.5 10^3/uL (4.3-11.0)
[2018-08-15 06:10] VITALS: BP 101/57
[2018-08-15] MEDS: ACETAMINOPHEN 500 MG TAB (TYLENOL) PO SCH (06:13)
[2018-08-15] MEDS: IBUPROFEN 600 MG (MOTRIN) TAB PO SCH ×2 (06:13→12:01)
[2018-08-15 08:30] VITALS: BP 100/57
--- NOTE | 2018-08-15 08:30 | NUR ---
A.M. ASSESSMENT COMPLETED. VSS. WELL. DENIES ANY NEED FOR PAIN MEDICATION.
[2018-08-15] MEDS: PRENATAL VITAMIN 1 EA TAB PO SCH (08:43)
[2018-08-15] MEDS: FERROUS SULF 325 MG (IRON) TAB PO SCH (08:43)
--- NOTE | 2018-08-15 10:13 | Postpartum Progress Note ---
Note Note Day # 1 s/p / Subjective: Patient is without complaints. Ambulating, voiding. Tolerating a regular diet without nausea or vomiting. Normal lochia. Pain is well controlled with oral pain medications. breast feeding. a little bleeding from the nipple after . Has met with Sonal Objective: 08/15/18 06:10 Temp 98.4 Pulse 56 Resp 16 B/P (MAP) 101/57 (72) Pulse Ox 98 O2 Delivery Room Air Laboratory Tests Test 08/13/18 09:00 08/13/18 09:20 08/15/18 05:38 Range/Units Urine Color YELLOW Urine Clarity CLEAR Urine pH 7 5-9 Urine Specific [place] 1.005 L 1.016-1.022 Urine Protein NEGATIVE NEGATIVE Urine Glucose (UA) NEGATIVE NEGATIVE Urine Ketones NEGATIVE NEGATIVE Urine Nitrite NEGATIVE NEGATIVE Urine Bilirubin NEGATIVE NEGATIVE Urine Urobilinogen NORMAL NORMAL MG/DL Urine Leukocyte Esterase NEGATIVE NEGATIVE Urine RBC (Auto) 2+ H NEGATIVE Urine RBC RARE /HPF Urine WBC RARE /HPF Urine Squamous Epithelial Cells 2-5 /HPF Urine Crystals NONE /LPF Urine Bacteria NEGATIVE /HPF Urine Casts NONE /LPF Urine Mucus NEGATIVE /LPF Urine Culture Indicated CULTURE PENDING White Blood Count 12.4 H 10.5 4.3-11.0 10^3/uL Red Blood Count 3.88 L 3.15 L 4.35-5.85 10^6/uL Hemoglobin 11.4 L 9.5 L 11.5-16.0 G/DL Hematocrit 34 L 29 L 35-52 % Mean Corpuscular Volume 88 91 80-99 FL Mean Corpuscular Hemoglobin 29 30 25-34 PG Mean Corpuscular Hemoglobin Concent 33 33 32-36 G/DL Red Cell Distribution Width 14.7 H 14.9 H 10.0-14.5 % Platelet Count 255 193 130-400 10^3/uL Mean Platelet Volume 9.7 8.8 7.4-10.4 FL Neutrophils (%) (Auto) 82 H 73 42-75 % Lymphocytes (%) (Auto) 13 19 12-44 % Monocytes (%) (Auto) 5 6 0-12 % Eosinophils (%) (Auto) 1 2 0-10 % Basophils (%) (Auto) 0 0 0-10 % Neutrophils # (Auto) 10.1 H 7.7 1.8-7.8 X 10^3 Lymphocytes # (Auto) 1.6 2.0 1.0-4.0 X 10^3 Monocytes # (Auto) 0.6 0.7 0.0-1.0 X 10^3 Eosinophils # (Auto) 0.1 0.2 0.0-0.3 10^3/uL Basophils # (Auto) 0.0 0.0 0.0-0.1 10^3/uL Physical Exam: General - Alert and oriented, no apparent distress Abdomen - Soft, appropriately tender to palpation, non-distended, fundus firm at umbilicus Extremities - no edema, negative Madhuri's bilaterally [] Assessment: 1 post- day # s, status post spontaneous vaginal delivery/. Recovering well, hemodynamically stable 2. Acute blood loss anemia Plan: Routine care. Encourage breast feeding. Encourage ambulation. Ferrous sulfate supplementation. Plan for discharge later today or tomorrow Vitals - Labs Vital Signs - I&O Vital Signs Date Time Temp Pulse Resp B/P (MAP) Pulse Ox O2 Delivery O2 Flow Rate FiO2 08/15/18 06:10 98.4 56 16 101/57 (72) 98 Room Air 08/14/18 20:11 97.6 73 16 102/64 (77) 98 Room Air 08/14/18 17:00 97.8 64 16 98/50 (66) 98 Room Air 08/14/18 12:11 97.1 66 16 92/51 (65) Room Air Labs Laboratory Tests 08/15/18 05:38: White Blood Count 10.5, Red Blood Count 3.15L, Hemoglobin 9.5L, Hematocrit 29L, Mean Corpuscular Volume 91, Mean Corpuscular Hemoglobin 30, Mean Corpuscular Hemoglobin Concent 33, Red Cell Distribution Width 14.9H, Platelet Count 193, Mean Platelet Volume 8.8, Neutrophils (%) (Auto) 73, Lymphocytes (%) (Auto) 19, Monocytes (%) (Auto) 6, Eosinophils (%) (Auto) 2, Basophils (%) (Auto) 0, Neutrophils # (Auto) 7.7, Lymphocytes # (Auto) 2.0, Monocytes # (Auto) 0.7, Eosinophils # (Auto) 0.2, Basophils # (Auto) 0.0 Microbiology 08/13/18 Urine Culture - Final, Complete 3 or more isolates YAMILET EGAN DO Aug 15, 2018 10:13
[2018-08-15] MEDS ORDERED: FERR325T18 PO (10:15)
[2018-08-15] MEDS ORDERED: IBUP-844 PO (10:15)
[2018-08-15] MEDS ORDERED: ACET-77 PO (10:15)
[2018-08-15] MEDS ORDERED: DIBU30OI TOP (10:15)
--- NOTE | 2018-08-15 10:15 | NUR ---
SHOWERED WITHOUT PROBLEMS. INSPECTED STITCHES. MINIMAL TO NO SWELLING OBSERVED. STATES FEELS BETTER.
--- NOTE | 2018-08-15 10:17 | Discharge Inst-Women's Service ---
Discharge Inst-Women's Serv Depart Medication/Instructions New, Converted or Re-Newed RX: RX on Chart Final Diagnosis previous section advanced maternal age post maturity meconium vaginal after section epidural Consults/Follow Up Additional Follow Up: Yes (2 weeks and 6 weeks with Familia) Activity Activity: Activity as Tolerated Driving Instructions: You May Drive NO SMOKING: NO SMOKING Nothing Inside Vagina: No Douching, No [place] (4 weeks), No Tampons Diet Discharge Diet: No Restrictions Symptoms to Report to : Bleeding Excessive, Pain Increased, Fever Over 101 Degrees F, Vaginal Bleeding Increase, Cramps in Feet or Legs, Vaginal Discharge Foul For Any Problems or Questions: Contact Your Physician YAMILET EGAN DO Aug 15, 2018 10:17
--- NOTE | 2018-08-15 11:00 | NUR ---
INFANT IN NURSERY FOR CIRCUMCISION.
[2018-08-15 12:00] VITALS: BP 104/58
--- NOTE | 2018-08-15 12:30 | NUR ---
EATING LUNCH. PLANS TO GO HOME SOON.
--- NOTE | 2018-08-15 13:30 | NUR ---
DISCHARGE INSTRUCTIONS REVIEWED WITH PT AND COPY GIVEN. STATES UNDERSTANDING OF ALL INSTRUCTIONS AND NEED TO F/U SCHEDULED AND NEEDED.
[2018-08-15 14:00] VITALS: BP 104/58
--- NOTE | 2018-08-15 14:00 | NUR ---
DISMISSED AMB FROM [facility] WITH INFANT TO FAMILY CAR IN STABLE CONDITION ACC BY SPOUSE AND LEIGH ANN FERNANDEZ RN.
== END 2018-08-15 14:00 | disposition home or self-care (01) | DRG 805 ==
LOC: WSo 09:05 → LDRP 09:07 → WSo 09:10 → LDRP 09:48
PROVIDERS: ADMIT Obstetrics & Gynecology; ATTEND Obstetrics & Gynecology
PROC: 10E0XZZ Delivery of Products of Conception, External Approach (ICD-10-PCS; principal; 2018-08-14)
PROC: 0KQM0ZZ Repair Perineum Muscle, Open Approach (ICD-10-PCS; 2018-08-14)
DX: O34.211 Maternal care for low transverse scar from previous cesarean delivery (principal); O41.1230 Chorioamnionitis, third trimester, not applicable or unspecified; O70.1 Second degree perineal laceration during delivery; O71.82 Other specified trauma to perineum and vulva; O32.6XX0 Maternal care for compound presentation, not applicable or unspecified; O90.81 Anemia of the puerperium; D62 Acute posthemorrhagic anemia; Z3A.40 40 weeks gestation of pregnancy; Z37.0 Single live birth
CPT/HCPCS: 36415; 81000; 85025; 86850; 86900; 86901; 87088; 99212